=== PATIENT | female | born 1930 | race Hispanic/Latino ===

== ENCOUNTER 2018-01-08 15:49 | Inpatient (IN) | payer MEDICARE ==
[~2018-01-08] VITALS: Ht 152.4 cm; Wt 102.3 kg
[~2018-01-08 15:49] MED LIST: AMITRIPTYLINE H25 MG PO; AMLODIPINE BESY10 MG PO; AMOXICILLIN500 MG PO; ASPIR 8181 MG PO; BENTYL20 MG PO; BYETTA5 MCG/0.02 SQ; CARVEDILOL6.25 MG PO; CHOLESTYRAMINE L4 GM PO; COREG12.5 MG PO; DIAZEPAM5 MG PO; DICYCLOMINE HCL20 MG PO; FUROSEMIDE40 MG PO; GABAPENTIN100 MG PO; GLIPIZIDE5 MG PO; IMODIUM2 MG PO; LANSOPRAZOLE30 MG PO; LANTUS100 UNITS/ SQ; LOSARTAN POTAS100 MG PO; MECLIZINE HCL12.5 MG PO; Nifedipine PO; PROTONIX40 MG/ML PO; ZYRTEC10 M1 PO
[2018-01-08] MEDS ORDERED: ONDANSETRON HCL INJ 2 MG/ML VIAL IV ONE (16:20)
[2018-01-08] MEDS ORDERED: MORPHINE SULFATE INJ 4 MG/ML INJ IV ONE (16:20)
[2018-01-08 16:28] LABS: BASOPHILS % 0.3 % (0.0-1.0); HEMATOCRIT 32.9 % (34.2-44.1); HEMOGLOBIN 11.1 g/dL (12.0-16.0); LYMPHOCYTES # (AUTO) 1.4 (1.0-3.2); MEAN CORPUSCULAR HEMOGLOBIN 30.6 pg (28-32); MEAN CORPUSCULAR HGB CONC 33.7 g/dL (31-35); MEAN CORPUSCULAR VOLUME 90.6 fL (81-99); MONOCYTES # (AUTO) 1.1 (0.2-0.8); MONOCYTES % 9.7 % (4.4-11.3); NEUTROPHILS # (AUTO) 8.3 (2.1-6.9); NEUTROPHILS % 76.6 % (38.7-80.0); PLATELET COUNT 343 x10e3/uL (140-360); RED BLOOD COUNT 3.63 x10e6/uL (3.6-5.1); RED CELL DISTRIBUTION WIDTH 13.7 % (11.7-14.4)
[2018-01-08 16:33] LABS: INR 1.21; PROTHROMBIN TIME 14.4 seconds (11.9-14.5)
[2018-01-08 16:34] LABS: PARTIAL THROMBOPLASTIN TIME 28.8 seconds (23.8-35.5)
[2018-01-08 16:43] LABS: ALBUMIN 3.3 g/dL (3.5-5.0); ANION GAP 16.1 mmol/L (8-16); CREATININE, SERUM 2.83 mg/dL (0.57-1.11); MAGNESIUM 1.8 MG/DL (1.3-2.1); POTASSIUM 3.1 mmol/L (3.5-5.1)
[2018-01-08] MEDS ORDERED: DIATRIZOATE MEGL/DIATRIZOA SOD 30 ML BTL PO ONE (17:23)
[2018-01-08 17:24] LABS: BILIRUBIN,URINE NEGATIVE (NEGATIVE); CLARITY,URINE CLOUDY (CLEAR); COLOR,URINE YELLOW (YELLOW); KETONES,URINE NEGATIVE (NEGATIVE); LEUKOCYTE ESTERASE ,URINE 1+ (NEGATIVE); NITRITE,URINE NEGATIVE (NEGATIVE); PROTEIN,URINE DIPSTICK 3+ (NEGATIVE); URINE UROBILINOGEN 0.2 mg/dL (0.2 - 1)
[2018-01-08 17:42] LABS: BACTERIA,URINE MODERATE /HPF; EPITHELIAL CELLS,URINE RARE /LPF; MUCUS,URINE FEW (RARE); WBC,URINE (MAN) 21-50 /HPF (0-5)
[2018-01-08 18:18] LABS: CREATINE KINASE MB 4.4 ng/mL (0-5.0)
--- NOTE | 2018-01-08 19:43 | Diagnostic Imaging Report ---
CT Abdomen and Pelvis without contrast INDICATION: Abdominal pain for one week, abdominal distention and diarrhea TECHNIQUE: Thin collimation axial images obtained from the diaphragm to the level of the pubic symphysis without nonionic intravenous contrast. RADIATION DOSE: Total DLP: 765.5 mGy*cm Estimated effective dose: (DLP x 0.015 x size factor) mSv CTDIvol has been reviewed. It is below the limits set by the Radiation Protocol Committee (RPC). COMPARISON: CT abdomen/pelvis 01/15/2016. MRCP 01/15/2016 ABDOMEN FINDINGS: Lung Bases: Multiple noncalcified nodules in the lower lobes measure up to 10 mm. The heart is normal in size. There are numerous calcifications of the tracheobronchial tree. Pericardial effusion measures 6 mm. Liver: Normal in attenuation without mass. Gallbladder: Absent. The common bile duct measures 1.7 cm in diameter without intraluminal filling defect. This is stable. Pancreas: Diffusely atrophic. The pancreas duct in the proximal body measures 6 mm. Spleen: Normal size without mass. Adrenal Glands: No evidence for mass. Kidneys: Right: Mildly atrophic. No calculus. No cortical mass or hydronephrosis Left: Mildly atrophic. No calculus. No cortical mass or hydronephrosis Lymph Nodes: Left periaortic lymph nodes have developed measuring up to 1.5 cm. There is new soft tissue in the root of the small bowel mesentery measuring 1.9 x 2.2 cm in the axial plane. This immediately inferior to the pancreas head. A lymph node in the dada hepatis measures 2.3 x 3.1 cm and is new. Aorta: Normal in diameter with diffuse calcifications. PELVIS FINDINGS: Bowel: Stomach: Contains enteric contrast. A large diverticulum at the antrum/first portion of the duodenum measures 5.6 cm in diameter and contains air and enteric contrast. Adjacent to this is soft tissue stranding.. Small Bowel: There is enteric contrast in the duodenum, jejunum, and ileum. There is mild soft tissue stranding in the first portion of the duodenum.. Large Bowel: Contains enteric contrast. A few diverticula are in the sigmoid colon. No associated inflammation. Appendix: Not visualized and may be absent. Bladder: Well distended and is normal. Ureters: No ureteral dilatation. The uterus is absent. There are no adnexal masses. No free fluid or fluid collection.. Bones: Moderate degenerative changes of the spine are stable with anterolisthesis of L4 on L5, grade 1. No pars defects. Treated compression fracture of T11 is stable. No new compression deformities. Soft tissues: Multiple calcifications in the left breast and posterior right pelvis are stable. IMPRESSION: 1. Periportal, periaortic, mesenteric lymphadenopathy suggestive of underlying malignancy possibly associated with the stomach, first portion of the duodenum, or inferior pancreas head. 2. New diverticulum arising from the gastric antrum/first portion of the duodenum with associated inflammation. This could represent acute duodenitis or associated with tumor. 3. Stable common bile duct dilatation; its involvement by neoplasm cannot be entirely excluded. 4. New pulmonary nodules suggestive of metastases. Signed by: Dr. Robert Castellano MD on 01/08/2018 7:39 PM
[2018-01-08] MEDS ORDERED: CEFTRIAXONE SOD 1 GM VIAL IV ONE (20:00)
[2018-01-08] MEDS ORDERED: DEXTROSE 50% SYRINGE 50 ML IV PRN (20:45)
[2018-01-08] MEDS ORDERED: MORPHINE SULFATE 2 MG/ML SYR IV PRN (20:45)
[2018-01-08] MEDS ORDERED: SODIUM CHLORIDE 0.9% 1000ML 1,000 ML IV ONE (20:45)
[2018-01-08] MEDS ORDERED: ONDANSETRON HCL INJ 2 MG/ML VIAL IV PRN (20:45)
[2018-01-08 21:30] VITALS: BP 135/63
[2018-01-08] MEDS: INSULIN REGULAR, HUMAN 100 UNIT/1 ML 3ML VIAL SQ SCH (22:02)
[2018-01-09] VITALS (7 sets, daily range): BP systolic 122–155; BP diastolic 60–67
[2018-01-09 01:33] LABS: CREATINE KINASE MB 3.7 ng/mL (0-5.0)
[2018-01-09] MEDS ORDERED: FUROSEMIDE40 MG PO (04:30)
[2018-01-09] MEDS ORDERED: HYDRALAZINE HCL25 MG PO (04:30)
[2018-01-09] MEDS ORDERED: HUMALOG100 UNIT/3 SQ (04:30)
[2018-01-09] MEDS ORDERED: SODIUM BICARBO650 MG PO (04:30)
[2018-01-09] MEDS ORDERED: OMEPRAZOLE40 MG PO (04:30)
[2018-01-09] MEDS ORDERED: AMLODIPINE BESY10 MG PO (04:30)
[2018-01-09 06:58] LABS: BASOPHILS % 0.3 % (0.0-1.0); HEMATOCRIT 27.8 % (34.2-44.1); HEMOGLOBIN 9.1 g/dL (12.0-16.0); LYMPHOCYTES # (AUTO) 1.9 (1.0-3.2); LYMPHOCYTES % 21.4 % (18.0-39.1); MEAN CORPUSCULAR HEMOGLOBIN 30.3 pg (28-32); MEAN CORPUSCULAR HGB CONC 32.7 g/dL (31-35); MEAN CORPUSCULAR VOLUME 92.7 fL (81-99); MONOCYTES % 10.8 % (4.4-11.3); NEUTROPHILS # (AUTO) 5.9 (2.1-6.9); NEUTROPHILS % 67.3 % (38.7-80.0); PLATELET COUNT 284 x10e3/uL (140-360); RED CELL DISTRIBUTION WIDTH 13.7 % (11.7-14.4)
[2018-01-09 07:36] LABS: ALBUMIN 2.7 g/dL (3.5-5.0); ANION GAP 13.3 mmol/L (8-16); CALCIUM 8.1 mg/dL (8.4-10.2); CREATININE, SERUM 2.9 mg/dL (0.57-1.11); POTASSIUM 3.3 mmol/L (3.5-5.1)
[2018-01-09 07:55] LABS: CREATINE KINASE MB 3.2 ng/mL (0-5.0)
[2018-01-09] MEDS: INSULIN REGULAR, HUMAN 100 UNIT/1 ML 3ML VIAL SQ SCH ×4 (08:56→21:10)
[2018-01-09] MEDS ORDERED: HYDRALAZINE HCL 25 MG TAB PO PRN (09:45)
[2018-01-09] MEDS: PANTOPRAZOLE SOD 40 MG TABEC PO SCH (10:42)
[2018-01-09] MEDS: AMLODIPINE BESYLATE 10 MG TAB PO SCH (10:42)
[2018-01-09] MEDS: SODIUM BICARBONATE 650 MG TAB PO SCH ×2 (10:42→17:18)
[2018-01-09] MEDS ORDERED: POTASSIUM CHLORIDE 20MEQ/100ML 100 ML IV ONE (10:45)
[2018-01-09] MEDS ORDERED: FUROSEMIDE 40 MG TAB PO SCH (11:00)
--- NOTE | 2018-01-09 11:17 | Consultation ---
DATE OF CONSULTATION: January 09, 2018 HISTORY OF PRESENT ILLNESS: This 87-year-old female, who is accompanied by her niece, presented with weakness, nausea and diarrhea. She was recently at [facility] with nausea, vomiting and weakness. She was found to have acute kidney injury. Dr. Bell, my associate, saw her there. She was scheduled to come as an outpatient but presented here and got admitted. Denies any fever, chills or abdominal pain. Laboratory tests show abnormal kidney function. Initial urine specific gravity 1.030, pH 5 with RBCs 6-10 and WBCs 21-50. Labs show sodium 132, potassium 3.3, bicarbonate 22, creatinine 2.9 with a calcium 8.1. Blood sugar 135. CBC shows a white count 8.7, hemoglobin 9.1. Stool occult blood was negative. ALLERGIES: NO APPARENT DRUG ALLERGIES. MEDICATIONS: Currently on ceftriaxone, IV normal saline, Zofran p.r.n., sodium bicarbonate, p.o. morphine p.r.n., hydralazine p.r.n., amlodipine 10 mg daily, Lasix 40 mg daily. SOCIAL HISTORY: Does not smoke or drink. PAST MEDICAL HISTORY: Type-2 diabetes, hypertension. No history of any lung disorder. Workup here showed CT scan of the abdomen, which was done without contrast, shows significant abnormality with pulmonary mets, large diverticulum of the antrum, periportal periaortic mesenteric lymphadenopathy. PHYSICAL EXAMINATION GENERAL: Awake, alert, lying supine, no apparent distress. VITALS: Blood pressure 147/66, pulse rate 80, afebrile, respiratory rate 18. HEAD AND NECK: Corneas clear. Oral mucosa dry. LUNGS: Occasional rhonchi and decreased air entry at base, otherwise clear. HEART: S1, S2 audible. ABDOMEN: Distended, soft, nontender. LOWER EXTREMITIES: No edema. IMPRESSION AND PLAN 1. Acute kidney injury with underlying chronic end-stage renal disease. Will obtain records from [facility]. 2. Mild distal renal tubular acidosis. Concentrated urine suggestive of relative prerenal state with diarrhea. Now we strongly suspect Clostridium difficile. Will send urine culture, not being sent. Blood cultures pending. I will hold off on ceftriaxone and start IV Flagyl. Consult Dr. Chung to review the CT scan findings of possible malignancy with metastases. Discussed with niece who has power of divorce attorney but not for health. Patient is awake, alert and of sound mind. 3. Anemia, multifactorial. Continue with IV normal saline. Discontinue Lasix. Replace potassium. Urine noecjop-wo-qxdabfyyye ratio. Workup ordered. Job#: [id number]
[2018-01-09 11:33] LABS: CREATININE,URINE RANDOM 110.7 mg/dL (47-110); TOTAL PROTEIN, URINE 190.9 mg/dL (1-14)
[2018-01-09] MEDS ORDERED: METRONIDAZOLE 500MG/NS 100ML 100 ML IV SCH (12:00)
--- NOTE | 2018-01-09 15:12 | Diagnostic Imaging Report ---
PROCEDURE: X-RAY CHEST, TWO VIEWS COMPARISON: CT abdomen and pelvis without contrast 01/08/2018 INDICATIONS: SHORTNESS OF BREATH FINDINGS: Lungs are well-inflated. No focal consolidation, pleural effusion, or pneumothorax. Questionable right upper lobe pulmonary nodules superimposed over the posterior fourth rib measuring 5-7 mm. Bibasilar pulmonary nodules described on the comparison examination are not identified by plain radiography. Normal heart size with a tortuous thoracic aorta. Prominence of the paratracheal regions of the mediastinum likely reflects great vessel tortuosity though mediastinal lymphadenopathy is an additional consideration. No acute osseous abnormality. Vertebroplasty cement in the T11 vertebral body. CONCLUSION: No acute cardiopulmonary abnormality. Questionable right upper lobe pulmonary nodules. CT scan of the chest may be obtained for further evaluation. Refer to the report for CT abdomen and pelvis 01/08/2018 for full description of bilateral lower lobe pulmonary nodules. Dictated by: Israel Valdes M.D. on 01/09/2018 at 13:57 Electronically approved by: Israel Valdes M.D. on 01/09/2018 at 13:57
[2018-01-09] MEDS: METRONIDAZOLE 500MG/NS 100ML 100 ML IV SCH (16:12)
--- NOTE | 2018-01-09 21:52 | Consultation ---
DATE OF CONSULTATION: January 09, 2018 REFERRING PHYSICIAN: Dr. Lea Blackburn. REASON FOR CONSULTATION: 1. Profound weakness for 2 weeks. 2. Abdominal adenopathy on CT exam. HISTORY OF PRESENT ILLNESS: An 87-year-old female whose manager paid is her niece, Farnaz. She is in the room. Farnaz brought her aunt to this hospital because she had been feeling profoundly weak, having recurrent explosive diarrhea for about 2-3 days. Apparently, the patient was in [facility] less than a couple of weeks ago. She was admitted there with some nausea, vomiting, diarrhea. She has had extensive workup there. She was found to have acute kidney injury secondary to dehydration. She was seen by planner/scheduler, Dr. Bell, there. She was hydrated well. I am not sure if the creatinine level improved after hydration. The patient was also consulted by gastroenterology service. She was seen by my associate, Dr. Mendoza. She had a noncontrast CT scan of the abdomen and pelvis that showed no abdominal adenopathy. The patient apparently also had upper endoscopy performed by Dr. Mendoza which showed normal duodenum, stomach, as well as esophagus. Gastric biopsy showed some gastritis without any H. pylori infection. Duodenal biopsies consistent with some peptic duodenitis. No mass was seen in the upper GI tract. The patient is status post cholecystectomy. CT exam showed common bile duct dilated to 12 mm. Liver enzymes were found normal. Due to renal insufficiency, CT exam was done without any contrast. After upper endoscopy was negative, the patient was discharged home with instructions to follow with Dr. Mendoza in his office in one week. Dr. Mendoza had planned to do upper endoscopic ultrasound for evaluation of unexplained dilated common bile duct. Prior to discharge the patient's diarrhea had not completely gone, but has significantly reduced in frequency. Nausea and vomiting had resolved. She was also being given some Reglan. Therefore, Reglan was stopped. It was told that possibly Reglan was causing diarrhea. After reaching home for a couple of days, the patient continued to feel weak. Weakness got progressed to the extent that she was barely able to move out of her bed to the chair. She also had recurrent bouts of explosive diarrhea. She lives in [place]. Her niece, Farnaz, called when she started feeling so weak. The ambulance arrived, and ambulance wanted to take her to [facility] in [facility]. However, Farnaz lives in [place]. Therefore, she told ambulance not to take her to [facility]. She asked ambulance folks/paramedics to transfer in [place]'s car and Farnaz drove her to [facility]. Farnaz never wanted to take the patient back to [facility] as her experience with nursing staff and hospital management at [facility] was not pleasant. She was very dissatisfied with her aunt's care there. Therefore, she decided to not take her to [facility], but to bring her to [facility]. Here, CT scan was repeated without contrast that showed multiple pulmonary nodules suggestive of metastasis, periportal, periaortic, mesenteric lymphadenopathy measuring from 2-3 cm, suggestive of underlying malignancy, possibly associated with the stomach, first portion of the duodenum or inferior pancreatic head. A stable common bile duct dilatation to 17 mm. Gallbladder is surgically absent. Liver was within normal attenuation. Of note, this exam is also without contrast. Therefore, CT showing contrast limited information on all the solid organs. There was enteric contrast given that outlined the GI tract as well as the stomach. Ever since she is here, her diarrhea has completely stopped. However, she has been given IV fluids, intravenous Flagyl to cover possible C. difficile associated diarrhea. GI has been consulted for further evaluation and recommendations about profound weakness and CT findings. REVIEW OF SYSTEMS: A 12-point system reviewed, symptomatology is limited as per HPI. PAST MEDICAL HISTORY: Type 2 diabetes, hypertension. PAST SURGICAL HISTORY: Hysterectomy, hernia repair, cholecystectomy. FAMILY HISTORY: Noncontributory given her advanced age. SOCIAL HISTORY: No smoking, alcohol or any illicit drug use. ALLERGIES: NO KNOWN DRUG ALLERGIES. HOME MEDICATIONS: Amlodipine, furosemide, hydralazine, insulin, Glargine insulin, Lispro, omeprazole, sodium bicarbonate tablets. INPATIENT MEDICATIONS: List reviewed as per SEP. PHYSICAL EXAMINATION VITAL SIGNS: Temperature 98.3, pulse 76, respirations 18, blood pressure 140/63, oxygen saturation 94% on room air. GENERAL: Lethargic, drowsy, obese body habitus, not in any acute distress. HEENT: Moist mucous membranes, anicteric sclerae. CVS: S1 and S2 regular. LUNGS: Bilaterally grossly clear. ABDOMEN: Obese. Abdominal adiposity. Mild gaseous distention. Tenderness in the upper quadrant without rebound, rigidity or guarding. No palpable mass or hernia. Positive bowel sounds. EXTREMITIES: Warm. No leg edema. LABORATORY DATA: Sodium 135, potassium 3.1, chloride 98, bicarb 24, BUN 54, creatinine 2.83, which has gone up to 2.90. Glucose 160. Magnesium 1.8. Calcium 9.0. Liver enzymes show a total bilirubin 0.6. AST 19. ALT 12. Alkaline phosphatase 70. Amylase 40. Lipase 90. Albumin 3.3. WBC 8.77. Hemoglobin has come down to 9.1 from 11.1. Hematocrit 27.8, MCV 92.7, platelet count 284,000. Stool for C. difficile negative. CT of the abdomen and pelvis without contrast showed periportal, periaortic, mesenteric lymphadenopathy suggestive of underlying malignancy, possibly associated with stomach, first portion of the duodenum or inferior pancreatic head. New diverticulum arising from the gastric antrum/first portion of the duodenum with associated inflammation. This could represent acute duodenitis or associated with tumor. Stable common bile duct dilatation, is involvement by neoplasm cannot be entirely excluded. New pulmonary nodule suggestive of metastasis. IMPRESSION: Intra-abdominal adenopathy with pulmonary nodule suggestive of metastasis. Recent upper endoscopy performed by Dr. Mendoza less than 2 weeks ago when she was at [facility] was unremarkable. No mass was seen in the upper GI tract. A non-contrast CT scan done at [facility] on 12/28/17 was unremarkable and revealed no abdominal adenopathy. CT non-contrast again done here is revealing intra-abdominal adenopathy. PLAN: From a GI standpoint, I recommend to advance the diet as tolerated. Supportive care. The patient needs tissue diagnosis of intra-abdominal masses. This can be achieved by performing endoscopic ultrasound with fine needle aspiration cytology. Unfortunately, endoscopic ultrasound is not available in this hospital. I recommend that the patient be transferred either to [place] or [facility] where endoscopic ultrasound with fine needle aspiration of the intra-abdominal masses can be performed. Also, get oncology consult. The patient's niece is concerned that even if she is having any underlying malignancies, given her advanced age, what are the options. All of these questions can also be answered by oncologist better. I will call Dr. Blackburn to see if the patient can be transferred from this hospital to either [place] or [place]. The patient is profoundly weak and severely symptomatic with abdominal pain. Therefore, she cannot be discharged home and brought back as an outpatient. The only option is intra-facility transfer. I thank Dr. Blackburn for allowing me to participate in the care of this patient. Job#: [id number] [place]
[2018-01-10] VITALS (11 sets, daily range): BP systolic 126–166; BP diastolic 53–100
[2018-01-10] MEDS: METRONIDAZOLE 500MG/NS 100ML 100 ML IV SCH ×5 (00:01→23:47)
[2018-01-10] MEDS ORDERED: SODIUM CHLORIDE 0.9% 250ML 250 ML ONE (00:05)
[2018-01-10 07:02] LABS: ALBUMIN 2.6 g/dL (3.5-5.0); ANION GAP 13.4 mmol/L (8-16); CREATININE, SERUM 2.74 mg/dL (0.57-1.11); POTASSIUM 3.4 mmol/L (3.5-5.1)
[2018-01-10] MEDS: INSULIN REGULAR, HUMAN 100 UNIT/1 ML 3ML VIAL SQ SCH ×4 (07:30→20:02)
[2018-01-10] MEDS: SODIUM BICARBONATE 650 MG TAB PO SCH ×2 (08:37→16:14)
[2018-01-10] MEDS: PANTOPRAZOLE SOD 40 MG TABEC PO SCH (08:37)
[2018-01-10] MEDS: AMLODIPINE BESYLATE 10 MG TAB PO SCH (08:39)
--- NOTE | 2018-01-10 10:49 | Progress Note ---
DATE: January 10, 2018 Ms. Elmore is an 87-year-old female with a history of diabetes, hypertension, hyperlipidemia, admitted at [facility] 2 weeks ago with abdominal pain, and apparently nausea. She had an EGD and a CT scan there that came back apparently negative. The patient was not doing fine. She was brought back to the emergency room here complaining of abdominal pain and diarrhea. PHYSICAL EXAMINATION GENERAL: She is awake. She is alert. VITALS: Temperature is 97.7, blood pressure 146/65. HEART: Regular rate. LUNGS: Clear to auscultation. ABDOMEN: Distended and soft. BLOOD WORK: Potassium is 3.4, creatinine 2.74, glucose 113. White count 8.77, hemoglobin 9.1, hematocrit 27.8. CT scan abdominal and pelvic CT, the patient was found to have here periportal and periaortic mesenteric lymph nodes suggesting underlying malignancy with possible associated with the stomach and the 1st portion of the duodenum. There is diverticula arising from the gastric antrum. Stable common bile duct dilatation. New pulmonary nodules suggesting metastasis. The chest x-ray shows no acute cardiopulmonary abnormalities. ASSESSMENT AND PLAN 1. Diarrhea: Rule out Clostridium difficile. 2. Abdominal pain and nausea. 3. Abnormal abdominal and pelvic computerized tomography with multiple enlarged lymph nodes concerning for malignancy. 4. Xquvy-il-rentmoz renal failure. 5. Anemia. 6. Diabetes, type 2. 7. Hypertension. PLAN: At the present time, GI and quality engineer medical device are following the patient with me. We are going to try to get the records from [facility]. We are going to get an oncology consult with Dr. Cartagena. The patient apparently will need CT with endoscopic ultrasound so they can do an aspiration. This procedure is not done here at [facility]. After Dr. Catragena sees the patient, will discuss with the patient and family further workup for her. All of this was discussed at the bedside with the patient and family members. All questions were answered to satisfaction. I spent more than 30 minutes discussing plan of care with the patient and family, reviewing lab work, x-rays, and overnight events. Job#: [id number] JOSTIN
[2018-01-10] MEDS ORDERED: POTASSIUM CHLORIDE 20 MEQ TAB CR PO ONE (11:15)
[2018-01-10] MEDS ORDERED: LORAZEPAM 1 MG TAB PO PRN (17:15)
[2018-01-11 04:00] VITALS: BP 156/68
[2018-01-11 06:09] LABS: ANION GAP 13.7 mmol/L (8-16); CALCIUM 8.1 mg/dL (8.4-10.2); CREATININE, SERUM 2.65 mg/dL (0.57-1.11); MAGNESIUM 1.7 MG/DL (1.3-2.1); POTASSIUM 3.7 mmol/L (3.5-5.1)
[2018-01-11] MEDS: INSULIN REGULAR, HUMAN 100 UNIT/1 ML 3ML VIAL SQ SCH ×4 (07:30→20:44)
[2018-01-11 07:36] VITALS: BP 142/65
[2018-01-11] MEDS: SODIUM BICARBONATE 650 MG TAB PO SCH ×2 (08:14→16:46)
[2018-01-11] MEDS: PANTOPRAZOLE SOD 40 MG TABEC PO SCH ×2 (08:14→08:24)
[2018-01-11] MEDS: AMLODIPINE BESYLATE 10 MG TAB PO SCH (09:56)
[2018-01-11] MEDS: METRONIDAZOLE 500MG/NS 100ML 100 ML IV SCH ×2 (09:56→16:46)
--- NOTE | 2018-01-11 10:17 | Progress Note ---
DATE: January 11, 2018 Mrs. Elmore is an 87-year-old female with a history of diabetes, hypertension, hyperlipidemia, discharged from [facility] 2 weeks ago and came back to the emergency room complaining of abdominal pain and vomiting. CT scan here shows multiple lymph nodes concerning for malignancy. The patient has been seen by Dr. Cartagena who explained to the family there is no need for a biopsy because of her age. She is not a candidate for any type of aggressive chemotherapy. PHYSICAL EXAMINATION GENERAL: She is awake and alert. VITALS: Temperature is 98.4, blood pressure 142/65. HEART: Regular rate. LUNGS: Poor inspiratory effort. ABDOMEN: Soft. BLOOD WORK: Potassium 3.7, creatinine is 2.65, glucose is 232. White count is 8.77, hemoglobin 9.1, hematocrit 27.8. ASSESSMENT AND PLAN 1. Diarrhea. 2. Abdominal pain and nausea. 3. Enlarged lymph nodes in the abdominal area concerning for malignancy. 4. Bfcus-fd-clfmuzv renal failure. 5. Anemia. 6. Diabetes, type 2. 7. Hypertension. PLAN: At the present time with this patient, is Dr. Cartagena is considering if the patient needs any biopsies. Because of her age, she is not a candidate for any type of chemotherapy. That will be too aggressive for her. We discussed with Dr. Cartagena and family at bedside different options. One of the options will be to send the patient to LTAC for a couple of weeks. Anyway, that will not resolve the overall prognosis and what we need to do after that. The other option is to get Hospice to evaluate the patient and have Hospice at home or to have Hospice in a usp. That will be another option. She asked for comfort care since no other further treatment is suggested or advised because of her age. All of this was discussed with the patient and niece at bedside. All questions were answered to satisfaction. Dr. Cartagena was also with me. regional property manager spoke to niece to decide on further disposition. I spent more than 30 minutes discussing plan of care with family and patient, reviewing overnight events, lab work, and x-rays. Job#: [id number] JOSTIN
[2018-01-11 11:57] VITALS: BP 131/60
[2018-01-11 16:12] VITALS: BP 119/57
[2018-01-11] MEDS ORDERED: LEVALBUTEROL HCL SOLN NEBU 0.63 MG/3 ML NEB INH PRN (17:00)
[2018-01-11 20:00] VITALS: BP 119/57
[2018-01-11 20:14] VITALS: BP 154/68
--- NOTE | 2018-01-11 22:48 | Progress Note ---
DATE: 01/11/18 SUBJECTIVE: Patient reports no abdominal pain. Eating, drinking otherwise okay. Has had 1 bowel movement, soft, brown stool. REVIEW OF SYSTEMS GENERAL: No fever or chills. Weakness present. RESPIRATORY: No cough or expectoration. CVS: No chest pain or palpitation. MEDICATION: Reviewed SEP. PHYSICAL EXAMINATION VITAL SIGNS: Temperature 97, pulse 80, respiration 23, blood pressure 154/68, oxygen saturation 99% on 3 L nasal of cannula. GENERAL: Not in any acute distress. Obese body habitus. Oral mucosa is moist. CVS: S1, S2 regular. LUNGS: Bilaterally grossly clear. ABDOMEN: Obese, soft, nondistended. No palpable mass or hernia. Positive bowel sounds. EXTREMITIES: Warm. No leg edema. LABS: No lab drawn recently. IMPRESSION: Intra-abdominal adenopathy with lung nodules concerning for metastasis with the primary abdominal malignancies. PLAN: I had a detailed discussion with Dr. Cartagena. Dr. Cartagena, as well as Dr. Blackburn had a detailed discussion with the patient's niece. Patient is likely going to have outpatient hospice care. Given advanced age, she will not be able to tolerate any kind of chemotherapy even if she has any intra-abdominal malignancies. Performing endoscopic ultrasound with fine-needle aspiration, cytology will not be useful if we are not able to provide any definitive treatment. I concur with the approach of Dr. Cartagena. Will continue to monitor clinically. Job#: [id number] CQ MTDD
[2018-01-12] MEDS: METRONIDAZOLE 500MG/NS 100ML 100 ML IV SCH ×3 (00:15→16:38)
[2018-01-12 00:26] VITALS: BP 153/66
[2018-01-12 04:00] VITALS: BP 128/59
[2018-01-12 05:47] LABS: ALBUMIN 2.5 g/dL (3.5-5.0); ANION GAP 13.1 mmol/L (8-16); CALCIUM 8.3 mg/dL (8.4-10.2); CREATININE, SERUM 2.45 mg/dL (0.57-1.11); POTASSIUM 4.1 mmol/L (3.5-5.1)
[2018-01-12 07:58] VITALS: BP 140/63
[2018-01-12] MEDS: INSULIN REGULAR, HUMAN 100 UNIT/1 ML 3ML VIAL SQ SCH ×3 (07:59→16:38)
[2018-01-12] MEDS: PANTOPRAZOLE SOD 40 MG TABEC PO SCH (07:59)
[2018-01-12] MEDS: SODIUM BICARBONATE 650 MG TAB PO SCH ×2 (07:59→16:38)
[2018-01-12] MEDS: AMLODIPINE BESYLATE 10 MG TAB PO SCH (07:59)
[2018-01-12 08:00] VITALS: BP 140/63
--- NOTE | 2018-01-12 09:30 | Discharge Summary ---
Mrs. Elmore is an 87-year-old female with a history of diabetes, hypertension, hyperlipidemia, who was discharged from [facility] 2 weeks prior to admission here came with abdominal pain and vomiting. CT showed multiple lymph nodes concerning for malignancy. Dr. Cartagena saw the patient. Due to her age, she is not a candidate for any type of treatment. That is why a biopsy was not performed. She was also found to have colitis. She is on IV antibiotics. The plan is to transfer her to [place] to continue her treatment. PHYSICAL EXAMINATION GENERAL: She is awake and alert today. VITALS: Temperature is 96.9, blood pressure 140/63. HEART: Regular rate. LUNGS: Poor inspiratory effort. ABDOMEN: Tender and soft. BLOOD WORK: Potassium is 4.1, creatinine is 2.45, glucose is 216. White count is 8.77, hemoglobin 9.1 and hematocrit is 27.8. Chest x-ray on admission shows no acute cardiopulmonary abnormalities. Abdominal and pelvic CT shows periportal and periaortic mesenteric lymphadenopathy suggesting underlying malignancy probably associated with the stomach, first portion of the duodenum or pancreas. New diverticula arising from the gastric antrum that could be duodenitis or a tumor. Stable common bile duct dilatation. DISCHARGE DIAGNOSES 1. Diarrhea, probably colitis. 2. Abdominal pain. 3. Enlarged lymph nodes in the abdominal area concerning for malignancy. 4. Lmkue-fk-scudjnw renal failure. 5. Anemia. 6. Diabetes, type 2. 7. Hypertension. PLAN: At the present time, the patient is not a candidate to her age for any chemotherapy, even though we do not have the type of tumor that she has. She is on IV antibiotics. Family was wishing her to go to LTAC for a couple of weeks. After that, while she is there we are going to get a Hospice evaluation for this patient. All of this was discussed with Dr. Cartagena, and also with the family members. All questions were answered to satisfaction. Please see home medication reconciliation list. The plan today is to transfer the patient to [place] to continue treatment. EARLE MAURO MD Job#: [id number] [place]
[2018-01-12 12:01] VITALS: BP 147/67
[2018-01-12] MEDS ORDERED: LOPERAMIDE HCL 2 MG CAP PO PRN (13:30)
[2018-01-12 16:32] VITALS: BP 152/69
--- NOTE | 2018-01-12 19:16 | Consultation ---
DATE OF CONSULTATION: January 10, 2018 Emily Elmore is an 87-year-old female referred to me for lymphadenopathy. The patient had presented with weakness and subsequently was found to be anemic, hypokalemic, chronic renal failure, multiple nodules in the lung and subsequently referred to me for further evaluation and treatment. SOCIAL HISTORY: Noncontributory. FAMILY HISTORY: Noncontributory. ALLERGIES: REPORTED NONE. MEDICATIONS: At this time. 1. Metronidazole. 2. Insulin. 3. Morphine. 4. Ondansetron. 5. Hydralazine. 6. Sodium bicarbonate. 7. Amlodipine. 8. Protonix. REVIEW OF SYSTEMS: HEENT: Normal. CARDIAC: History of hypertension. RESPIRATORY: Multiple nodules in the lung. GI: Multiple lymphadenopathy including in dada hepatis. : Normal. MUSCULOSKELETAL: Normal. SKIN AND BREASTS: Normal. NEUROENDOCRINE: History of diabetes. PHYSICAL EXAMINATION: GENERAL: A morbidly obese female. Anemic. Right supraclavicular lymph node 2 cm. HEART: Within normal limits. LUNGS: Clear. ABDOMEN: Obese. RECTAL AND VAGINAL EXAM: Deferred. CENTRAL NERVOUS SYSTEM: Essentially normal. EXTREMITIES: Essentially normal. LABORATORY DATA: Sodium 130, potassium 3.4, chloride 98, CO2 22, BUN 52, creatinine 2.7. WBC 8.7. Hemoglobin 9.1. Hematocrit 27.8. Platelets 284,000. INR 1.2. Bilirubin 0.420. SGOT 12, SGPT 7, alkaline phosphatase 54. CAT scan of the abdomen shows multiple nodules in the lung, noncalcified and abdominal adenopathy. Diverticulum in the antrum and lymphadenopathy at the dada hepatis, treated compression fracture of T11, degenerative changes of the spine. IMPRESSION: 1. Anemia of chronic disease. 2. Hypokalemia. 3. Chronic renal failure. 4. Hypoalbuminemia. 5. Multiple nodules in the lung, noncalcified. 6. Abdominal adenopathy. 7. Diverticulum at antrum. 8. Treated compression fracture of T11. 9. Degenerative changes of the spine. 10. Possible lymphoma. PLANS, COMMENTS AND SUGGESTIONS: Suggest supportive care for an 87-year-old with intra-abdominal adenopathy, dada hepatic adenopathy, right supraclavicular adenopathy with anemia. Even if I make a diagnosis by a biopsy, I would not treat her since it will be systemic chemotherapy which she will not tolerate. This was discussed at length with Dr. Bell. Dr. Blackburn and the family. They have agreed. Job#: [id number] JOHN
[2018-01-12] MEDS ORDERED: NYSTATIN 15 GM POWDER UD BTL TOP SCH (21:00)
== END 2018-01-12 18:52 | DRG 392 ==
LOC: ER 15:49 → ERHOLD 20:50 → UNDOADMIN 21:01 → ERHOLD 21:58 → MED/SURG3 21:58
PROVIDERS: ADMIT Internal Medicine; ATTEND Internal Medicine
DX: K52.9 Noninfective gastroenteritis and colitis, unspecified (principal); C85.93 Non-Hodgkin lymphoma, unspecified, intra-abdominal lymph nodes; N17.9 Acute kidney failure, unspecified; Z68.41 Body mass index [BMI] 40.0-44.9, adult; E87.6 Hypokalemia; D63.8 Anemia in other chronic diseases classified elsewhere; E11.22 Type 2 diabetes mellitus with diabetic chronic kidney disease; I12.9 Hypertensive chronic kidney disease with stage 1 through stage 4 chronic kidney disease, or unspecified chronic kidney disease; N18.3 Chronic kidney disease, stage 3 (moderate); Z79.4 Long term (current) use of insulin; N25.89 Other disorders resulting from impaired renal tubular function; E78.5 Hyperlipidemia, unspecified; E66.01 Morbid (severe) obesity due to excess calories; M47.819 Spondylosis without myelopathy or radiculopathy, site unspecified; K31.4 Gastric diverticulum
CPT/HCPCS: 36415; 71046; 74176; 80048; 80053; 81001; 82150; 82270; 82550; 82553; 82570; 82948; 83605; 83690; 83735; 84156; 84484; 85025; 85610; 85730; 87040; 87045; 87086; 87493; 93005; 96367; 96372; 96376; 97139; 99284; J0696; J2270; J2405; J3480; J7030; J7050